=== PATIENT | male | born 1950 | race Caucasian/White ===

== ENCOUNTER 2017-07-20 17:20 | Emergency (ER) | payer MEDICARE, OTHER ==
[2013-09-29 10:32] VITALS: BMI 24.8
[~2017-07-20 17:20] MED LIST: ASPIRIN EC81 M1 PO; CYCLOBENZAPRINE10 MG PO; FLOMAX0.4 MG PO; GLUCOPHAGE1000 MG PO; GLUCOPHAGE500 MG PO; HYDROCODONE-APA1 TAB PO; NEURONTIN600 MG PO; PLAVIX75 MG PO; PRAVACHOL20 MG PO; PRILOSEC20 MG PO; PROSCAR5 MG PO; TOPROL XL25 MG PO; ZESTORETIC 20/21 TAB PO
== END 2017-07-20 20:15 | disposition home or self-care (01) ==
LOC: D.ER 17:20
DX: S82.62XA Displaced fracture of lateral malleolus of left fibula, initial encounter for closed fracture (principal); W01.0XXA Fall on same level from slipping, tripping and stumbling without subsequent striking against object, initial encounter; Y93.89 Activity, other specified; Y92.019 Unspecified place in single-family (private) house as the place of occurrence of the external cause; E11.9 Type 2 diabetes mellitus without complications; K21.9 Gastro-esophageal reflux disease without esophagitis; I10 Essential (primary) hypertension

== ENCOUNTER → 2019-12-10 20:04 | Outpatient (CLI) | payer MEDICARE, OTHER ==
[2013-09-29 10:32] VITALS: BMI 24.8
[2019-12-10 20:29] LABS: BASOPHILS 0.5 % (0-2); EOSINOPHILS 0.4 % (0-7); HEMOGLOBIN 13.3 g/dL (13.5-17.5); IMMATURE GRANULOCYTES 0.1 % (0-5); LYMPHOCYTES 20.6 % (15-50); MCH 25.2 pg (26.0-34.0); MCHC 30.9 g/dL (31.0-37.0); MCV 81.6 fL (80.0-100.0); MEAN PLATELET VOLUME 9.2 fL (7.4-10.4); MONOCYTES 6.2 % (2-11); NEUTROPHILS 72.2 % (40-80); RBC 5.27 10x6/uL (4.20-6.10); WBC 7.4 10x3/uL (4.8-10.8)
[2019-12-10 20:30] LABS: PLATELET COUNT 308 10x3/uL (130-400)
== END | disposition home or self-care (01) ==
LOC: D.LABREF 20:04
PROVIDERS: ATTEND Internal Medicine Gastroenterology
DX: Z86.010 Personal history of colon polyps (principal); R19.5 Other fecal abnormalities; K92.2 Gastrointestinal hemorrhage, unspecified; K64.0 First degree hemorrhoids